=== PATIENT | female | born 1970 | race Caucasian/White ===

== ENCOUNTER 2019-01-05 13:32 | Emergency (ER) | payer BC ==
[~2019-01-05] VITALS: Ht 165.1 cm; Wt 68.0 kg
--- NOTE | 2019-01-05 14:28 | NUR ---
Pt brought directly back to [facility] by [facility] to bed 25 in handcuffs at 1340.
[2019-01-05] MEDS ORDERED: ESTR0.25 TOP (14:38)
[2019-01-05] MEDS ORDERED: LEVO75TA PO (14:38)
[2019-01-05] MEDS ORDERED: LIOT25TA6 PO (14:38)
[2019-01-05 15:21] LABS: BASOPHILS % (AUTO) 0.2 % (0-1); EOSINOPHILS # (AUTO) 0.1 X10'3 (0-0.9); EOSINOPHILS % (AUTO) 1.2 % (0-6); HEMATOCRIT 44.1 % (35.0-45.0); HEMOGLOBIN 15.1 g/dl (12.0-16.0); LYMPHOCYTES # (AUTO) 2.1 X10'3 (1.1-4.8); LYMPHOCYTES % (AUTO) 22.2 % (21-51); MEAN CORPUSCULAR HGB CONC 34.1 g/dL (33.0-36.5); MEAN CORPUSCULAR VOLUME 87.8 FL (78-98); MEAN PLATELET VOLUME 8.2 FL (7.4-10.4); MONOCYTES # (AUTO) 0.7 X10'3 (0-0.9); MONOCYTES % (AUTO) 7.1 % (2-12); NEUTROPHILS # (AUTO) 6.6 X10'3 (1.8-7.7); NEUTROPHILS % (AUTO) 69.3 % (42-75); PLATELET COUNT 335 X10'3 (140-440); RED BLOOD COUNT 5.02 X10'6 (4.20-5.60); RED CELL DISTRIBUTION WIDTH 13.1 % (11.5-14.5); WHITE BLOOD COUNT 9.5 X10'3 (4.5-11.0)
[2019-01-05 15:29] LABS: ALANINE AMINOTRANSFERASE 43 U/L (12-78); ALBUMIN 4.1 G/DL (3.4-5.0); ALBUMIN/GLOBULIN RATIO 1.2 (1.1-1.5); ALKALINE PHOSPHATASE 79 IU/L (46-116); ANION GAP 8 (8-16); ASPARTATE AMINO TRANSFERASE 17 U/L (10-37); BILIRUBIN,TOTAL 0.6 MG/DL (0.1-1.0); BLOOD UREA NITROGEN 18 MG/DL (7-18); BUN/CREATININE RATIO 21.2 (6.6-38.0); CALCIUM 9.6 MG/DL (8.5-10.1); CHLORIDE 108 MMOL/L (99-107); CREATININE 0.85 MG/DL (0.40-0.90); GLUCOSE 94 MG/DL (70-104); POTASSIUM 3.7 MMOL/L (3.5-5.1); SODIUM 143 MMOL/L (135-145); TOTAL CARBON DIOXIDE 27.4 MMOL/L (24-32); TOTAL PROTEIN 7.6 G/DL (6.4-8.2); eGFR 71 ML/MIN
[2019-01-05 15:33] LABS: URINE HCG NEGATIVE (NEG)
[2019-01-05 15:34] LABS: CLARITY,URINE CLEAR (Clear); COLOR,URINE YELLOW (Yellow); GLUCOSE, URINE NEGATIVE (Neg); KETONES,URINE NEGATIVE (Neg); LEUKOCYTE ESTERASE ,URINE NEGATIVE (Neg); NITRITES, URINE NEGATIVE (Neg); OCCULT BLOOD,URINE NEGATIVE (Neg); PH,URINE 5.5 (4.8-8.0); PROTEIN,URINE NEGATIVE (Neg); UROBILINOGEN,URINE 0.2 E.U/dL (0.2-1.0)
--- NOTE | 2019-01-05 15:40 | NUR ---
Pt's visiting at bedside.
[2019-01-05 15:41] LABS: ETHANOL < 0.010 GM/DL (0.0-0.010)
[2019-01-05 15:44] LABS: UA COLLECTION TYPE CLN CATCH MIDSTREAM
[2019-01-05 15:45] LABS: URINE AMPHETAMINE SCREEN POSITIVE (Neg); URINE BARBITUATE SCREEN NEGATIVE (Neg); URINE BENZODIAZEPINES SCREEN NEGATIVE (Neg); URINE CANNABINOID SCREEN POSITIVE (Neg); URINE COCAINE SCREEN NEGATIVE (Neg); URINE METHADONE SCREEN NEGATIVE (Neg); URINE OPIATE SCREEN NEGATIVE (Neg); URINE PHENCYCLIDINE SCREEN NEGATIVE (Neg)
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
--- NOTE | 2019-01-05 16:24 | NUR ---
Pt's brought in medication refills which he just picked up from the pharmacy. Included in the Rx's were Metformin which she had previously said she had not been taking. Pt now states that she takes it as needed and took 1 a couple of days ago, states that she doesn't like to take it because, "It makes me fell like shit and makes me shit." There was also a prescription for Adderal 20 mg that she had not mentioned previously. Pt states that she has ADD but she only takes it when she needs it, states she hasn't taken it for over a week. Pt previously had stated that she "was" on Wellbutrin as though no longer taking it but there was a new bottle the prescriptions that brought in from the pharmacy. Pt is extremely emotional, loud, reactive, and argumentative while family here. Also quite defensive about medications, insisted to that the doctor gave it to her and does not feel her medications may be affecting her mood or that her mood is unstable.
[2019-01-05] MEDS ORDERED: AMPH20TA3 PO (16:43)
[2019-01-05] MEDS ORDERED: BUPR300T53 PO (16:43)
[2019-01-05] MEDS ORDERED: METF-516 PO (16:43)
[2019-01-05] MEDS ORDERED: AMPH30TA3 PO (16:43)
--- NOTE | 2019-01-05 18:24 | NUR ---
brought in Rx's filled from [facility] yesterday. Pt has current prescriptions for Metformin, now states she took one 2 days ago. Also has a current prescription for Wellbutrin which she previously indicated she had not been taking and a prescription for Adderal 30 mg in the am and 20 mg at lunch time. Pt states that she hasn't taken this in a week but tox screen positive for amphetamines. Med rec updated and faxed to pharmacy. Pt's own meds Adderal and Estradiol gel sent to pharmacy. did not continue Adderal.
[2019-01-05 19:00] VITALS: BP 128/85
[2019-01-05] MEDS ORDERED: metFORMIN 500mg tablet PO SCH (20:00)
[2019-01-06] MEDS ORDERED: levoTHYROXINE 175mcg tablet PO SCH (07:00)
[2019-01-06] MEDS ORDERED: liothyronine sod 5mcg tablet PO SCH (07:30)
[2019-01-06] MEDS ORDERED: buPROPion SR 150mg tablet PO SCH (08:00)
[2019-01-06] MEDS ORDERED: ESTRADIOL TOP SCH (08:00)
== END 2019-01-05 20:05 | disposition home or self-care (01) ==
LOC: ER 13:32
DX: R45.851 Suicidal ideations (principal); E11.9 Type 2 diabetes mellitus without complications; E03.9 Hypothyroidism, unspecified; F12.90 Cannabis use, unspecified, uncomplicated; F15.90 Other stimulant use, unspecified, uncomplicated; Z90.49 Acquired absence of other specified parts of digestive tract; Z90.710 Acquired absence of both cervix and uterus; Z91.09 Other allergy status, other than to drugs and biological substances; Z79.899 Other long term (current) drug therapy; Z79.84 Long term (current) use of oral hypoglycemic drugs
CPT/HCPCS: 36415; 80053; 80305; 80320; 81003; 81025; 84443; 85025; 99285

== ENCOUNTER 2019-05-21 17:47 | Emergency (ER) | payer BC ==
[~2019-05-21] VITALS: Ht 165.1 cm; Wt 68.2 kg
[~2019-05-21 17:47] MED LIST: AMPH20TA3 PO; AMPH30TA3 PO; BUPR300T53 PO; ESTR0.25 TOP; LEVO75TA PO; LIOT25TA6 PO; METF-516 PO
[2019-05-21 17:51] VITALS: BP 182/102
[2019-05-21] MEDS ORDERED: DICL50TA8 PO (19:44)
[2019-05-21] MEDS ORDERED: ketorolac trometh inj. 60 MG/2 ML VIAL IM ONE (19:45)
== END 2019-05-21 20:18 | disposition home or self-care (01) ==
LOC: ER 17:48
DX: M25.562 Pain in left knee (principal); E11.9 Type 2 diabetes mellitus without complications; E03.9 Hypothyroidism, unspecified; F32.9 Major depressive disorder, single episode, unspecified; F12.90 Cannabis use, unspecified, uncomplicated; F15.90 Other stimulant use, unspecified, uncomplicated; Z88.8 Allergy status to other drugs, medicaments and biological substances; Z79.899 Other long term (current) drug therapy; Z90.49 Acquired absence of other specified parts of digestive tract; Z90.710 Acquired absence of both cervix and uterus; X50.0XXA Overexertion from strenuous movement or load, initial encounter; Y93.89 Activity, other specified; Y92.89 Other specified places as the place of occurrence of the external cause; Y99.8 Other external cause status
CPT/HCPCS: 73564; 96372; 99283; J1885